=== PATIENT | male | born 1945 | race Caucasian/White ===

== ENCOUNTER 2021-12-08 16:38 | Emergency (ER) | payer MEDICARE, SELFPAY ==
--- NOTE | 2021-12-08 16:45 | ECG_ITS ---
Test Reason : DIF BREATHING Blood Pressure : / mmHG Vent. Rate : 070 BPM Atrial Rate : 070 BPM P-R Int : 174 ms QRS Dur : 088 ms QT Int : 396 ms P-R-T Axes : 069 077 076 degrees QTc Int : 427 ms Normal sinus rhythm Normal ECG When compared with ECG of 24-MAY-2004 11:18, No significant change was found Referred By: Generic ED Physician Electronically Signed By:CAROLANN GILL
[2021-12-08 16:46] VITALS: BP 200/96; PULSE 69; RESP 18; TEMP 37.1; O2SAT 99; BMI 25.8
== END 2021-12-08 17:58 | disposition left against medical advice (07) ==
PROVIDERS: Emergency Provider Emergency Medicine; PCP Internal Medicine
DX: R94.31 Abnormal electrocardiogram [ECG] [EKG] (principal)
CPT/HCPCS: 93005; 99281; 99283